=== PATIENT | female | born 1940 | race Caucasian/White ===

== ENCOUNTER 2017-08-23 12:55 | Outpatient (CLI) | payer MEDICARE, BC | END 2017-08-23 12:56 | disposition home or self-care (01) | LOC: BICMAMMO 12:55 | PROVIDERS: ATTEND Surgery | DX: Z12.31 Encounter for screening mammogram for malignant neoplasm of breast (principal); Z85.3 Personal history of malignant neoplasm of breast | CPT/HCPCS: 77063; 77067 ==

== ENCOUNTER 2018-08-24 10:50 | Outpatient (CLI) | payer MEDICARE, BC ==
--- NOTE | 2018-08-24 11:34 | MMO ---
Bilateral MAMMO Bilat Screen [facility]. CLINICAL HISTORY: Patient is 78 years old and is seen for screening. The patient has the following family history of breast cancer: paternal aunt, 40s and daughter. The patient has a history of malignant (generic) in the right breast at age 57. The patient has a history of right Lumpectomy at age 57 - malignant. VIEWS: The views performed were: bilateral craniocaudal with tomosynthesis and bilateral mediolateral oblique with tomosynthesis. FILMS COMPARED: The present examination has been compared to prior imaging studies performed at [facility] on 08/23/2017, and at [facility] on 07/02/2014, 07/07/2015 and 08/18/2016. MAMMOGRAM FINDINGS: The breasts are heterogeneously dense, which could obscure a lesion on mammography. Finding 1: There is a stable post-surgical scar seen in the right breast. Finding 2: There are stable benign appearing calcifications seen in both breasts. There are no suspicious masses, suspicious calcifications, or new areas of architectural distortion. IMPRESSION: THERE IS NO MAMMOGRAPHIC EVIDENCE OF MALIGNANCY. A ROUTINE FOLLOW-UP MAMMOGRAM IN 1 YEAR IS RECOMMENDED. THE RESULTS OF THIS EXAM WERE SENT TO THE PATIENT. ACR BI-RADS Category 2 - Benign finding MAMMOGRAPHY NOTE: 1. A negative mammogram report should not delay a biopsy if a dominant of clinically suspicious mass is present. 2. Approximately 10% to 15% of breast cancers are not detected by mammography. 3. Adenosis and dense breasts may obscure an underlying neoplasm.
== END 2018-08-24 10:51 | disposition home or self-care (01) ==
LOC: BICMAMMO 10:50
PROVIDERS: ATTEND Pain Medicine Pain Medicine
DX: Z12.31 Encounter for screening mammogram for malignant neoplasm of breast (principal); Z80.3 Family history of malignant neoplasm of breast
CPT/HCPCS: 77063; 77067

== ENCOUNTER 2019-04-11 06:23 | Outpatient (CLI) | payer MEDICARE, BC ==
[2019-04-11 10:45] LABS: #Basophils 0.1 thou/uL (0.0-0.2); #Eosinphils 0.2 thou/uL (0.0-0.7); #Lymphocytes 1.6 thou/uL (1.20-3.40); #Monocytes 0.6 thou/uL (0.11-0.59); #Neutrophils 3.8 thou/uL (1.40-6.50); %Eosinophils 3.6 % (0.0-10.0); %Lymphocytes 25.7 % (21.0-51.0); %Monocytes 10.1 % (0.0-10.0); %Neutrophils 59.5 % (42.0-75.0); Hemoglobin 13.8 g/dL (12.0-16.0); Mean Corpuscular HGB CONC 32.9 g/dL (32.0-36.0); Mean Corpuscular Hemoglobin 30.2 pg (27.0-31.0); Mean Corpuscular Volume 91.8 fL (78.0-98.0); Mean Platelet Volume 6.7 fL (7.4-10.4); Platelet Count 238 thou/uL (130-400); RBC Distribution Width 11.7 % (11.5-14.5); Red Blood Cell (RBC) Count 4.56 mill/uL (4.20-5.40); White Blood Cell (WBC) Count 6.3 thou/uL (4.8-10.8)
[2019-04-11 10:53] LABS: Bacteria/HPF None Seen HPF (None Seen); Bilirubin Negative (Negative); Blood, Urine Trace (Negative); Clarity Clear (Clear); Glucose, Urine (Dipstick) Normal (Negative); Leukocyte Negative Leu/uL (Negative); Nitrite Negative (Negative); Protein, Urine (Dipstick) Negative (Neg-Trace); RBC/HPF 0-3 HPF (0-3); Squamous Epithelial None Seen HPF (0-3); Urobilinogen Normal mg/dL (Less than 2); WBC/HPF 0-3 HPF (0-3)
[2019-04-11 10:57] LABS: Anion Gap 13 mmol/L (10-20); BUN (Urea Nitrogen) 21 mg/dL (9.8-20.1); Calc. Creatinine Clearance 0 mL/min (70-130); Calcium 9.6 mg/dL (7.8-10.44); Carbon Dioxide 30 mmol/L (23-31); Chloride 102 mmol/L (98-107); Estimated GFR-MDRD 68; Glucose 107 mg/dL (83-110); Potassium 3.9 mmol/L (3.5-5.1); Sodium 141 mmol/L (136-145)
[2019-04-11 11:08] LABS: Prothrombin Time 12.8 SEC (12.0-14.7)
== END 2019-04-11 06:24 | disposition home or self-care (01) ==
LOC: LABBT 06:23
PROVIDERS: ATTEND Orthopaedic Surgery
DX: Z01.818 Encounter for other preprocedural examination (principal); M17.0 Bilateral primary osteoarthritis of knee
CPT/HCPCS: 80048; 81001; 85025; 85610; 87086; 93005; 93010

== ENCOUNTER 2019-04-22 05:33 | Day surgery (SDC) | payer MEDICARE, BC ==
--- NOTE | 2019-04-18 08:54 | HP ---
HISTORY OF PRESENT ILLNESS: The patient is an 79-year-old female with a long history of progressive degenerative arthritis of both knees, left greater than right. She has had progressive symptoms despite rest, restriction of activities, anti-inflammatory medications, and several cortisone injections. Her pain has become worse over the past several months after working in her garden, but there has been no specific injury. The pain is now interfering with day-to-day activities including walking, getting dressed, and sleeping. PAST MEDICAL HISTORY: The patient has history of diabetes, hypertension, and arthritis. CURRENT MEDICATIONS: Include; 1. Ibuprofen. 2. Vitamin D. 3. Calcium. 4. Dymista. 5. Synthroid. 6. Diovan. 7. Norvasc. 8. Metformin. 9. Lipitor. 10. Tylenol. ALLERGIES: SHE HAS NO KNOWN ALLERGIES. FAMILY HISTORY: Otherwise, unremarkable. SOCIAL HISTORY: Otherwise, unremarkable. REVIEW OF SYSTEMS: Otherwise, unremarkable. PHYSICAL EXAMINATION: GENERAL: Reveals a healthy elderly female. HEENT: Unremarkable. NECK: Supple. CHEST: Clear. HEART: Regular rate and rhythm. ABDOMEN: Soft and nontender. PELVIC, RECTAL, AND BREASTS: Deferred. EXTREMITIES: Pertinent findings are related to her knees. There is puffiness bilaterally, but no definite effusion. There are very slight valgus bilaterally. Range of motion is 5 to 120 degrees on the left, 5 to 125 degrees on the right. There is tenderness with medial and lateral joint lines. There is mild crepitus with motion. There is no instability. Palpable distal pulses. Neurovascular exam is intact. DIAGNOSTIC STUDIES: X-rays of both knees reveal tricompartmental DJD with minimal joint space remaining in progression from previous films. She has received medical and cardiac clearance from Dr. Rosen and Dr. Christie. IMPRESSION: 1. Degenerative arthritis of both knees, left symptomatic more than right. 2. History of hypertension and atherosclerotic cardiovascular disease. 3. History of diabetes. 4. History of thyroid replacement. PLAN: Left total knee replacement. The nature of the surgery, length of recovery, and potential complications such as infection, loss of motion, incomplete relief, delayed wound healing, neurovascular injury, thromboembolic phenomena, possible transfusion, and need for revision have been discussed in detail. Job ID: [id number]
[2019-04-22] MEDS ORDERED: Tranexamic Acid 1,000 MG/10 ML VIAL ONE ×2 (06:01→08:55)
[2019-04-22] MEDS ORDERED: Vancomycin 1.5 GRAM/300 ML BAG 1.5 GM/300 ML BAG ONE (06:01)
[2019-04-22] MEDS ORDERED: Sodium Chloride 0.9% 100 ML ONE (06:01)
[2019-04-22] MEDS ORDERED: Fentanyl 100 MCG/2 ML VIAL ONE ×4 (06:14→09:30)
[2019-04-22] MEDS ORDERED: Midazolam HCl 2 mg/2 ml Vial ONE ×2 (06:14→07:17)
[2019-04-22] MEDS ORDERED: Lidocaine 1% (PF) 30 ML VIAL ONE (06:29)
[2019-04-22] MEDS ORDERED: Bupivacaine 0.25% HCL 30 ML VIAL ONE (06:37)
[2019-04-22] MEDS ORDERED: Lidocaine 1% w/Epinephrine 1:100K 20 ML VIAL ONE (06:37)
[2019-04-22] MEDS ORDERED: Ropivacaine HCl/PF 250 ML in Premix Bag 1 BAG NERVE BLCK SCH (07:32)
[2019-04-22] MEDS ORDERED: traMADol HCl 50 MG TAB PO PRN ×3 (07:32→10:38)
[2019-04-22] MEDS ORDERED: Fentanyl 100 MCG/2 ML VIAL IV PRN (07:32)
[2019-04-22] MEDS ORDERED: Acetaminophen 325 MG TAB PO PRN ×2 (07:32→10:38)
[2019-04-22] MEDS ORDERED: Ondansetron PF 4 MG/2 ML Vial IVP PRN ×2 (07:32→10:38)
[2019-04-22] MEDS ORDERED: HYDROcodone/Acetaminophen 10/325 mg Tablet PO PRN ×3 (07:32→10:38)
[2019-04-22] MEDS ORDERED: Zolpidem Tartrate 5 MG TAB PO PRN ×2 (07:32→10:38)
[2019-04-22] MEDS ORDERED: Promethazine HCl 25 MG/ML VIAL IM PRN (07:32)
[2019-04-22] MEDS ORDERED: Tranexamic Acid 1,000 MG in Sodium Chloride 0.9% 100 ML IVPB SCH ×2 (09:00→10:38)
[2019-04-22] MEDS ORDERED: Meperidine HCl/PF 25 MG/ML VIAL ONE (09:40)
--- NOTE | 2019-04-22 10:10 | OP ---
DATE OF PROCEDURE: 04/22/2019 REAL ESTATE EXECUTIVE ASSISTANT: Marcin Metcalf PA-C ANESTHESIA: General plus adductor canal and sciatic nerve blocks. PREOPERATIVE DIAGNOSIS: Degenerative arthritis, left knee. POSTOPERATIVE DIAGNOSIS: Degenerative arthritis, left knee. PROCEDURE PERFORMED: Left total knee replacement with computer-assisted navigation with cemented Carlos Triathlon components (#5 femoral component, #4 primary tibial baseplate with 9 mm CS plastic insert, and all-plastic A32 patellar component). DESCRIPTION OF PROCEDURE: After satisfactory anesthesia was induced in supine position, sequential compression device was placed on the nonoperative leg throughout the procedure. The left leg was then prepped and draped in the routine sterile fashion. The limb was elevated and exsanguinated with an Esmarch bandage and the tourniquet deflated to 250 mmHg. A gently curved medial parapatellar incision was made, carried down to the subcutaneous tissues and bleeding points were controlled with Bovie cautery. Medial parapatellar arthrotomy was performed. Patella was dislocated laterally and portions of the fat pad were excised for exposure. There was marked tricompartmental degenerative arthritis of the knee with large areas of exposed bone. Meniscal remnants and osteophytes were removed. Using the [employer] pinless navigation system and the appropriate guides, the distal femoral and proximal tibial articular surfaces were excised with an oscillating saw to accept the trial components. It was felt #5 femoral component, #4 tibial baseplate with 9 mm CS plastic insert gave appropriate size, fit, stability, and correction of the preoperative deformity. The patellar articular surface was excised to accept all-plastic A32 patellar component. There was good range of motion and good patellar tracking. The trial components were removed. The knee was copiously irrigated with pulsatile lavage. The bony surfaces were thoroughly cleaned and dried. The permanent components were then cemented in a single stage using one pack of cement premixed with 1 g of tobramycin powder. Excess cement was removed. There was again good fit and stability of the components. The knee was copiously irrigated with pulsatile lavage. The medial retinaculum and quadriceps mechanism was closed with interrupted #2 Vicryl and a running #2 Quill. The skin and subcutaneous tissues were injected with a mixture of 30 mL of 0.25% Marcaine and a 20 mL of 1% lidocaine with epinephrine. The subcutaneous tissues were closed with a running 0 Quill suture and the skin closed with running subcuticular 3-0 Monoderm and SurgiSeal skin adhesive. A sterile bulky compressive dressing was applied. The tourniquet deflated after 66 minutes. The foot promptly pinked up. Sequential compression devices were placed on the upper leg and she was awakened and taken to the recovery room in stable condition. There were no apparent intraoperative complications. ESTIMATED BLOOD LOSS: Less than 100 mL. Job ID: [id number]
[2019-04-22] MEDS ORDERED: Ropivacaine 0.2% HCl/PF (40 MG/20 ML VIAL) ONE (10:19)
[2019-04-22] MEDS ORDERED: Glycopyrrolate 0.2 MG/ML 5 ML SYRINGE ONE (10:19)
[2019-04-22] MEDS ORDERED: PROPOFOL 200 MG/20 ML VIAL ONE (10:19)
[2019-04-22] MEDS ORDERED: Ropivacaine 0.5% HCl/PF (150 MG/30 ML VIAL) ONE (10:19)
[2019-04-22] MEDS ORDERED: Metoclopramide HCl 10 MG/2 ML VIAL ONE (10:19)
[2019-04-22] MEDS ORDERED: Lidocaine 1% PF 5 ML VIAL ONE (10:19)
[2019-04-22] MEDS ORDERED: Ondansetron PF 4 MG/2 ML Vial ONE (10:19)
--- NOTE | 2019-04-22 10:23 | RAD ---
LEFT KNEE 2 VIEWS: INDICATION: Postoperative left knee. COMPARISON: None. FINDINGS: There is a left total knee prosthesis that projects in the expected position. There is scattered int raarticular and periarticular soft tissue gas consistent with the patient's postoperative state. No acute osseous abnormality is evident. IMPRESSION: Postoperative left knee without overt evidence of radiographic abnormality. POS: CET
[2019-04-22] MEDS ORDERED: Fentanyl 100 MCG/2 ML VIAL SLOW IVP PRN ×2 (10:38)
[2019-04-22] MEDS ORDERED: diphenhydrAMINE 25 MG CAP PO PRN (10:38)
[2019-04-22] MEDS ORDERED: Promethazine HCl 25 MG/ML VIAL SLOW IVP PRN (10:38)
[2019-04-22] MEDS ORDERED: Ketotifen Fumarate 0.025% Ophth Soln 5 ml Bottle EA EYE PRN (10:38)
[2019-04-22 10:56] VITALS: BMI 33.3
[2019-04-22] MEDS ORDERED: Fluticasone Propionate Nasal Spray 16 gm Bottle NASAL PRN (11:15)
[2019-04-22] MEDS: Ketorolac Tromethamine 30 MG/ML VIAL IVP SCH ×3 (11:19→23:09)
[2019-04-22] MEDS: Sodium Chloride 0.9% 1,000 ML IV SCH ×2 (11:21→20:55)
[2019-04-22] MEDS ORDERED: Ketorolac Tromethamine 30 MG/ML VIAL IVP SCH (12:00)
[2019-04-22] MEDS ORDERED: CEFAZOLIN 2 GM in Premix Bag 1 BAG IVPB SCH (14:00)
[2019-04-22] MEDS ORDERED: Dextrose 5% in Water 1,000 ML IV PRN (14:27)
[2019-04-22] MEDS ORDERED: HumaLOG 300 UNITS/3 ML VIAL SC PRN (14:27)
[2019-04-22] MEDS ORDERED: Dextrose 50% Abboject 50 ML SYRINGE SLOW IVP PRN (14:27)
[2019-04-22] MEDS: HYDROcodone/Acetaminophen 10/325 mg Tablet PO PRN (14:44)
--- NOTE | 2019-04-22 14:53 | CON ---
DATE OF CONSULTATION: PRIMARY CARE PHYSICIAN: Pete Rosen. PRIMARY TEAM: Orthopedics, Dr. Wong. REASON FOR CONSULTATION: Medical management. HISTORY OF PRESENT ILLNESS: This is an 79-year-old white female, who presented for left total knee arthroplasty due to severe arthritis. She had surgery done early this morning and is comfortable in the bed currently without any complaints. PAST MEDICAL HISTORY: 1. Diabetes mellitus type 2, on oral hypoglycemics. 2. Hypertension. 3. Hyperlipidemia. 4. Hypothyroidism. 5. Arthritis. PAST SURGICAL HISTORY: 1. Lumpectomy for breast cancer. 2. Parathyroidectomy for hyperparathyroidism of one of her glands. 3. Umbilical hernia repair. 4. Left wrist surgery for fracture with plate placement. SOCIAL HISTORY: No tobacco, alcohol, or illicit drug use. The patient is a . She is a retired nurse. FAMILY HISTORY: No significant family medical history. ALLERGIES: NO KNOWN DRUG ALLERGIES. CURRENT MEDICATIONS: 1. Acetaminophen as needed for pain. 2. Ibuprofen as needed for pain. 3. Amlodipine 2.5 mg daily. 4. Atorvastatin 20 mg daily. 5. Calcium citrate 500 mg twice a day. 6. Vitamin D3 4000 units daily. 7. Flonase allergy spray, two sprays in each nostril daily as needed. 8. Ketotifen fumarate one drop in each eye twice a day. 9. Levothyroxine 150 mcg daily. 10. Metformin 1000 mg daily. 11. Diovan 160/12.5 mg one tablet daily. REVIEW OF SYSTEMS: CONSTITUTIONAL: No fevers. No chills. EYES: No double vision or blurred vision. ENT: No congestion, drainage, or sore throat. CARDIOVASCULAR: No chest pain. No palpitations or racing heart. PULMONARY: No coughing, wheezing, or shortness of breath. GASTROINTESTINAL: No abdominal pain. No nausea or vomiting. No diarrhea or constipation. GENITOURINARY: No dysuria or hematuria. MUSCULOSKELETAL: See HPI. No current pain after surgery. SKIN: No rashes or other lesions she has noted. NEUROLOGIC: No numbness, tingling, or focal weakness. PHYSICAL EXAMINATION: VITAL SIGNS: Blood pressure 129/74, pulse 87, respirations 18, O2 saturation 95% on 2 L nasal cannula, temperature 97.4. GENERAL: This is a well-developed obese white female, in no acute distress. HEENT: Pupils equal, round, and reactive to light. Oropharynx is clear without lesions, erythema, or exudate. NECK: Supple. No lymphadenopathy. No thyroid nodules or enlargement. No JVD. HEART: Regular rate and rhythm. She does have a musical holosystolic murmur. No rubs or gallops. The patient states this murmur has been present for the last 10 years and she had a normal echocardiogram. LUNGS: Clear to auscultation bilaterally. No wheezes, crackles, or rhonchi. ABDOMEN: Soft, obese, nontender to palpation. Normoactive bowel sounds. No hepatosplenomegaly or other masses. EXTREMITIES: No clubbing, cyanosis, or edema. She does have the postoperative dressing on the left knee with ice on it as well and has SCDs placed bilaterally. SKIN: No rashes or other lesions noted. NEUROLOGIC: She has intact strength and sensation in all extremities. No facial droop. PSYCHIATRIC: Alert and oriented x3. Normal mood and affect. LABORATORY DATA: CBC within normal limits. Coagulation profile normal. Basic metabolic panel within normal limits. Urinalysis negative for infection. ASSESSMENT: 1. Severe arthritis of the left knee, status post total knee arthroplasty. 2. Diabetes mellitus type 2. We will resume patient's metformin and check fingerstick blood sugars q.a.c. and at bedtime. 3. Hypertension, resume patient's home antihypertensives. 4. Hyperlipidemia, resume statin. 5. Hypothyroidism, resume levothyroxine. 6. Gastrointestinal prophylaxis. The patient is on Pepcid twice a day. 7. Deep venous thrombosis prophylaxis. The patient is already on SCDs. 8. Code status. The patient is a full code. Her closest kin and medical decision maker will be her son, Jesse Haines. Job ID: [id number]
[2019-04-22] MEDS: CEFAZOLIN 2 GM in Premix Bag 1 BAG IVPB SCH ×2 (16:58→23:10)
[2019-04-22] MEDS: metFORMIN 500 MG TAB PO SCH (16:59)
[2019-04-22] MEDS: HumaLOG 300 UNITS/3 ML VIAL SC PRN (16:59)
[2019-04-22] MEDS ORDERED: Vancomycin HCl 1.5 GM in Sodium Chloride 0.9% 250 ML 300 ML IVPB SCH (18:00)
[2019-04-22] MEDS: Atorvastatin Calcium 20 MG TAB PO SCH (20:56)
[2019-04-22] MEDS: Senokot S 8.6-50 MG TAB PO SCH (20:56)
[2019-04-22] MEDS: Aspirin 81 mg Enteric Coated Tablet PO SCH (20:56)
[2019-04-22] MEDS: Famotidine 20 MG TAB PO SCH (20:56)
[2019-04-22] MEDS: Calcium Citrate 950 MG TAB PO SCH (20:57)
[2019-04-23] MEDS: Levothyroxine 150 MCG TAB PO SCH (05:07)
[2019-04-23] MEDS: Ketorolac Tromethamine 30 MG/ML VIAL IVP SCH ×4 (05:08→23:42)
[2019-04-23] MEDS: Sodium Chloride 0.9% 1,000 ML IV SCH ×2 (05:31→16:33)
[2019-04-23] MEDS: HYDROcodone/Acetaminophen 10/325 mg Tablet PO PRN ×3 (06:05→16:50)
[2019-04-23 06:06] LABS: Hemoglobin 11.7 g/dL (12.0-16.0); Mean Corpuscular HGB CONC 32.2 g/dL (32.0-36.0); Mean Corpuscular Hemoglobin 29.9 pg (27.0-31.0); Mean Corpuscular Volume 92.8 fL (78.0-98.0); Mean Platelet Volume 6.7 fL (7.4-10.4); Platelet Count 183 thou/uL (130-400); RBC Distribution Width 11.7 % (11.5-14.5); Red Blood Cell (RBC) Count 3.93 mill/uL (4.20-5.40); White Blood Cell (WBC) Count 9.1 thou/uL (4.8-10.8)
[2019-04-23] MEDS: Famotidine 20 MG TAB PO SCH ×2 (08:18→20:52)
[2019-04-23] MEDS: Aspirin 81 mg Enteric Coated Tablet PO SCH ×2 (08:18→20:51)
[2019-04-23] MEDS: Multivitamin W/ Minerals 1 TAB PO SCH (08:19)
[2019-04-23] MEDS: Senokot S 8.6-50 MG TAB PO SCH ×2 (08:20→20:51)
[2019-04-23] MEDS: Hydrochlorothiazide 25 MG TAB PO SCH (08:20)
[2019-04-23] MEDS: Calcium Citrate 950 MG TAB PO SCH ×2 (08:20→20:50)
[2019-04-23] MEDS ORDERED: Amlodipine 5 MG TAB PO SCH (09:00)
[2019-04-23] MEDS ORDERED: Valsartan 80 MG TAB PO SCH (09:00)
--- NOTE | 2019-04-23 15:36 | PDOC.HOSPP ---
- Subjective Subjective: doing good, BP on the low side. low grade temp. - Objective Vital Signs & Weight: Vital Signs (12 hours) Temp Pulse Resp BP Pulse Ox 04/23/19 10:05 94 L 04/23/19 08:31 94 L 04/23/19 08:20 69 04/23/19 07:57 94 L 04/23/19 07:55 99.5 F 69 14 96/60 80 L Weight Admit Weight 200 lb Weight 200 lb I&O: 04/22/19 04/23/19 04/24/19 06:59 06:59 06:59 Intake Total 1710 480 Output Total 1025 Balance 685 480 Result Diagrams: 04/23/19 05:12 Additional Labs: Accuchecks 04/23/19 04/23/19 04/22/19 11:25 06:12 20:06 POC Glucose 125 H 128 H 116 H 04/22/19 15:53 POC Glucose 154 H Hospitalist ROS - Medication Medications: Active Medications Generic Name Dose Route Start Last Admin Trade Name Freq PRN Reason Stop Dose Admin Hydrocodone Bitart/Acetaminophen 1 tab 04/22/19 10:38 04/22/19 22:24 Bernie 10/325 PO 1 tab Q4H PRN Administration Moderate Pain (4-6) Hydrocodone Bitart/Acetaminophen 2 tab 04/22/19 10:38 04/23/19 10:00 Bernie 10/325 PO 2 tab Q4H PRN Administration Severe Pain (7-10) Aspirin 81 mg 04/22/19 21:00 04/23/19 08:18 Ecotrin PO 81 mg BID RAUL Administration Atorvastatin Calcium 20 mg 04/22/19 21:00 04/22/19 20:56 Lipitor PO 20 mg HS RAUL Administration Calcium Citrate 475 mg 04/22/19 21:00 04/23/19 08:20 Calcium Citrate PO 475 mg BID RAUL Administration Famotidine 20 mg 04/22/19 21:00 04/23/19 08:18 Pepcid PO 20 mg BID RAUL Administration Fentanyl 100 mcg 04/22/19 10:38 04/22/19 11:20 Sublimaze SLOW IVP 50 mcg Q1H PRN Administration Severe Pain (7-10) Hydrochlorothiazide 12.5 mg 04/23/19 09:00 04/23/19 08:20 Hydrochlorothiazide PO Not Given DAILY RAUL Ropivacaine 250 ml/ Device 250 mls @ 0 mls/hr 04/22/19 07:32 04/23/19 09:49 NERVE BLCK 04/24/19 07:33 250 mls INF RALU Administration As Directed Sodium Chloride 1,000 mls @ 100 mls/hr 04/22/19 10:38 04/23/19 05:31 Normal Saline 0.9% IV Not Given .Q10H RAUL Insulin Human Lispro 0 units 04/22/19 14:27 04/22/19 16:59 Humalog SC 2 unit .MILD SLIDING SCALE PRN Administration Mild Correctional Scale Iron/Minerals/Multivitamins 1 tab 04/23/19 09:00 04/23/19 08:19 Theragran M PO 1 tab DAILY RAUL Administration Ketorolac Tromethamine 15 mg 04/22/19 12:00 04/23/19 12:34 Toradol IVP 04/24/19 12:01 15 mg Q6HR RAUL Administration Levothyroxine Sodium 150 mcg 04/23/19 06:00 04/23/19 05:07 Synthroid PO 150 mcg 0600 RAUL Administration Metformin HCl 1,000 mg 04/22/19 17:00 04/22/19 16:59 Glucophage PO 1,000 mg QPM-WM RAUL Administration Senna/Docusate Sodium 2 tab 04/22/19 21:00 04/23/19 08:20 Senokot S PO 2 tab BID RAUL Administration Valsartan 160 mg 04/23/19 09:00 04/23/19 08:21 Diovan PO Not Given DAILY RAUL - Exam General Appearance: NAD, awake alert Eye: PERRL ENT: normocephalic atraumatic Neck: supple, symmetric Heart: RRR Respiratory: CTAB Gastrointestinal: soft, normal bowel sounds Extremities - other findings: left TKA Neurological: no focal deficits Hosp A/P - Plan old records reviewed/req s/p L - TKA -on analgesic, PT, early ambulation - on ASA HTN -BP on the low end--if sBP<85, 250ml NS bolus, PRN -change meds with holds - HCTZ, valsartan changed to bid, for easy titration Hypothyroidism -on suppl, fw on tsh DVT ppx - ASA?
[2019-04-23] MEDS ORDERED: Sodium Chloride 0.9% 250 ML IV SCH (15:45)
[2019-04-23] MEDS: metFORMIN 500 MG TAB PO SCH (16:50)
[2019-04-23] MEDS: HumaLOG 300 UNITS/3 ML VIAL SC PRN (16:51)
[2019-04-23] MEDS: Valsartan 80 MG TAB PO SCH (20:50)
[2019-04-23] MEDS: Atorvastatin Calcium 20 MG TAB PO SCH (20:51)
[2019-04-24] MEDS: Sodium Chloride 0.9% 1,000 ML IV SCH ×2 (00:46→13:15)
[2019-04-24] MEDS: Ketorolac Tromethamine 30 MG/ML VIAL IVP SCH ×2 (05:03→12:27)
[2019-04-24] MEDS: Levothyroxine 150 MCG TAB PO SCH (05:03)
[2019-04-24 05:45] LABS: #Eosinphils 0.4 thou/uL (0.0-0.7); #Lymphocytes 1.2 thou/uL (1.20-3.40); #Monocytes 0.7 thou/uL (0.11-0.59); #Neutrophils 6.2 thou/uL (1.40-6.50); %Basophils 0.4 % (0.0-1.0); %Lymphocytes 14.1 % (21.0-51.0); %Monocytes 8.5 % (0.0-10.0); Hemoglobin 10.4 g/dL (12.0-16.0); Mean Corpuscular HGB CONC 33.7 g/dL (32.0-36.0); Mean Platelet Volume 6.9 fL (7.4-10.4); Platelet Count 159 thou/uL (130-400); RBC Distribution Width 11.7 % (11.5-14.5); Red Blood Cell (RBC) Count 3.35 mill/uL (4.20-5.40); White Blood Cell (WBC) Count 8.6 thou/uL (4.8-10.8)
[2019-04-24 05:58] LABS: Anion Gap 10 mmol/L (10-20); BUN (Urea Nitrogen) 20 mg/dL (9.8-20.1); Calc. Creatinine Clearance 73 mL/min (70-130); Calcium 8.3 mg/dL (7.8-10.44); Carbon Dioxide 27 mmol/L (23-31); Chloride 104 mmol/L (98-107); Estimated GFR-MDRD 63; Glucose 146 mg/dL (83-110); Sodium 137 mmol/L (136-145)
[2019-04-24] MEDS: Aspirin 81 mg Enteric Coated Tablet PO SCH (08:25)
[2019-04-24] MEDS: Famotidine 20 MG TAB PO SCH (08:25)
[2019-04-24] MEDS: Multivitamin W/ Minerals 1 TAB PO SCH (08:26)
[2019-04-24] MEDS: Valsartan 80 MG TAB PO SCH (08:26)
[2019-04-24] MEDS: Calcium Citrate 950 MG TAB PO SCH (08:26)
[2019-04-24] MEDS: Hydrochlorothiazide 25 MG TAB PO SCH (08:26)
[2019-04-24] MEDS: Senokot S 8.6-50 MG TAB PO SCH (08:26)
[2019-04-24] MEDS: HYDROcodone/Acetaminophen 10/325 mg Tablet PO PRN (08:38)
[2019-04-24 12:12] VITALS: BP 117/72; TEMP 97.9
--- NOTE | 2019-04-24 13:39 | PDOC.HOSPP ---
- Subjective Subjective: tolerating PT and no acute events/complaints - Objective Vital Signs & Weight: Vital Signs (12 hours) Temp Pulse Resp BP Pulse Ox 04/24/19 11:25 97.9 F 88 16 117/72 88 L 04/24/19 07:24 97.7 F 83 16 125/72 96 04/24/19 07:20 96 04/24/19 03:50 99.0 F 85 16 106/66 97 Weight Admit Weight 200 lb Weight 200 lb I&O: 04/23/19 04/24/19 04/25/19 06:59 06:59 06:59 Intake Total 1710 970 480 Output Total 1025 Balance 685 970 480 Result Diagrams: 04/24/19 05:04 04/24/19 05:04 Additional Labs: Accuchecks 04/24/19 04/24/19 04/23/19 11:09 06:09 20:39 POC Glucose 144 H 149 H 137 H 04/23/19 15:27 POC Glucose 156 H Hospitalist ROS - Medication Medications: Active Medications Generic Name Dose Route Start Last Admin Trade Name Freq PRN Reason Stop Dose Admin Hydrocodone Bitart/Acetaminophen 1 tab 04/22/19 10:38 04/22/19 22:24 Max 10/325 PO 1 tab Q4H PRN Administration Moderate Pain (4-6) Hydrocodone Bitart/Acetaminophen 2 tab 04/22/19 10:38 04/24/19 08:38 Max 10/325 PO 2 tab Q4H PRN Administration Severe Pain (7-10) Aspirin 81 mg 04/22/19 21:00 04/24/19 08:25 Ecotrin PO 81 mg BID RALU Administration Atorvastatin Calcium 20 mg 04/22/19 21:00 04/23/19 20:51 Lipitor PO 20 mg HS RAUL Administration Calcium Citrate 475 mg 04/22/19 21:00 04/24/19 08:26 Calcium Citrate PO 475 mg BID RAUL Administration Cholecalciferol 4,000 units 04/23/19 21:00 04/23/19 20:51 Vitamin D3 PO 4,000 units QPM RAUL Administration Famotidine 20 mg 04/22/19 21:00 04/24/19 08:25 Pepcid PO 20 mg BID RAUL Administration Fentanyl 100 mcg 04/22/19 10:38 04/22/19 11:20 Sublimaze SLOW IVP 50 mcg Q1H PRN Administration Severe Pain (7-10) Hydrochlorothiazide 12.5 mg 04/23/19 09:00 04/24/19 08:26 Hydrochlorothiazide PO 12.5 mg DAILY RAUL Administration Sodium Chloride 1,000 mls @ 100 mls/hr 04/22/19 10:38 04/24/19 13:15 Normal Saline 0.9% IV Not Given .Q10H RAUL Insulin Human Lispro 0 units 04/22/19 14:27 04/23/19 16:51 Humalog SC 2 unit .MILD SLIDING SCALE PRN Administration Mild Correctional Scale Iron/Minerals/Multivitamins 1 tab 04/23/19 09:00 04/24/19 08:26 Theragran M PO 1 tab DAILY RAUL Administration Levothyroxine Sodium 150 mcg 04/23/19 06:00 04/24/19 05:03 Synthroid PO 150 mcg 0600 RAUL Administration Metformin HCl 1,000 mg 04/22/19 17:00 04/23/19 16:50 Glucophage PO 1,000 mg QPM-WM RAUL Administration Senna/Docusate Sodium 2 tab 04/22/19 21:00 04/24/19 08:26 Senokot S PO 2 tab BID RAUL Administration Tramadol HCl 100 mg 04/22/19 10:38 04/23/19 20:52 Ultram PO 100 mg Q6H PRN Administration Moderate Pain (4-6) Valsartan 80 mg 04/23/19 21:00 04/24/19 08:26 Diovan PO 80 mg BID RAUL Administration - Exam General Appearance: NAD, awake alert Eye: PERRL ENT: normocephalic atraumatic Neck: supple, symmetric Heart: RRR, no murmur Respiratory: CTAB Gastrointestinal: non-tender, normal bowel sounds Extremities - other findings: left knee w.. sux scar, mildly erythematic. Neurological: no focal deficits Hosp A/P - Plan s/p L - TKA -on analgesic, PT, early ambulation - on ASA HTN -BP on the low end--if sBP<85, 250ml NS bolus, PRN -change meds with holds - HCTZ, valsartan changed to bid, for easy titration DM2 - on metformin -BG acceptable Hypothyroidism -on suppl, fw on tsh--------->nl DVT ppx - ASA? medically stable for rehab transfer, when able.
== END 2019-04-24 14:22 | disposition home or self-care (01) ==
LOC: SDC 05:33 → SJJU 10:22 → SDC 04-24 14:22
PROVIDERS: ATTEND Orthopaedic Surgery
PROC: 0SRD0JZ Replacement of Left Knee Joint with Synthetic Substitute, Open Approach (ICD-10-PCS; principal; 2019-04-22)
PROC: 3E0T3BZ Introduction of Anesthetic Agent into Peripheral Nerves and Plexi, Percutaneous Approach (ICD-10-PCS; 2019-04-22)
DX: M17.0 Bilateral primary osteoarthritis of knee (principal); E03.9 Hypothyroidism, unspecified; E11.9 Type 2 diabetes mellitus without complications; E78.5 Hyperlipidemia, unspecified; I10 Essential (primary) hypertension; G89.18 Other acute postprocedural pain; Z79.84 Long term (current) use of oral hypoglycemic drugs; Z79.899 Other long term (current) drug therapy
CPT/HCPCS: 27447; 64448; 73560; 80048; 82962; 84443; 85025; 85027; 97116 ×3; 97139 ×4; 97150 ×2; 97530 ×2; 98961; C1713; C1776; 36415; 36416; J0690; J1885; J2001; J2175; J2250; J2405; J2704; J2765; J2795; J3010; J3490; S0020

== ENCOUNTER 2021-09-15 12:48 | Outpatient (CLI) | payer MEDICARE, BC | END 2021-09-15 12:49 | disposition home or self-care (01) | LOC: LABBT 12:48 | PROVIDERS: ATTEND Orthopaedic Surgery | DX: Z01.818 Encounter for other preprocedural examination (principal); M17.11 Unilateral primary osteoarthritis, right knee | CPT/HCPCS: 71046; 93005; 93010 ==

== ENCOUNTER 2021-09-20 05:24 | Inpatient (IN) | payer MEDICARE, BC ==
[2021-09-15 14:10] LABS: Bilirubin Neg (Negative); Blood, Urine 25 (Negative); Glucose, Urine (Dipstick) Normal (Negative); Ketone, Urine Negative (Negative); Leukocyte Negative (Negative); Nitrite Negative (Negative); Protein, Urine (Dipstick) Negative (Neg-Trace); Specific Gravity, Urine 1.005 (1.002-1.036); Urobilinogen Normal mg/dL (Less than 2)
[2021-09-15 14:11] LABS: Clarity Clear (Clear)
[2021-09-15 14:12] LABS: #Basophils 0.1 10x3/uL (0.0-0.2); #Eosinphils 0.3 10x3/uL (0.0-0.5); #Monocytes 0.8 10x3/uL (0.0-1.1); #Neutrophils 4.3 10x3/uL (1.5-8.4); %Basophils 0.7 % (0.0-2.0); %Eosinophils 4.3 % (0.0-6.0); %Monocytes 10.3 % (0.0-10.0); %Neutrophils 57.6 % (40.0-75.0); Hemoglobin 13.7 g/dL (12.0-15.5); Mean Corpuscular HGB CONC 32.5 g/dL (32.0-36.0); Mean Corpuscular Hemoglobin 29.3 pg (27.0-33.0); Mean Corpuscular Volume 90.1 fl (81.6-98.3); Platelet Count 259 10x3/uL (150-450); RBC Distribution Width 12.5 % (11.5-14.5); Red Blood Cell (RBC) Count 4.67 10x6/uL (3.90-5.03); White Blood Cell (WBC) Count 7.5 10x3/uL (3.5-10.5)
[2021-09-15 14:18] LABS: INR-International Normal Ratio 0.9; Prothrombin Time 9.8 sec (9.5-12.1)
[2021-09-15 14:20] LABS: Anion Gap 14 mmol/L (10-20); BUN (Urea Nitrogen) 22 mg/dL (9.8-20.1); Calc. Creatinine Clearance 0 mL/min (70-130); Calcium 9.8 mg/dL (7.8-10.44); Carbon Dioxide 32 mmol/L (23-31); Chloride 98 mmol/L (98-107); Glucose 109 mg/dL (83-110); Sodium 140 mmol/L (136-145)
[2021-09-16 11:27] VITALS: BMI 32.4
[2021-09-20] MEDS ORDERED: Tranexamic Acid 1,000 MG/10 ML VIAL ONE ×2 (06:12→09:33)
[2021-09-20] MEDS ORDERED: Vancomycin HCl 500 MG VIAL ONE (06:12)
[2021-09-20] MEDS ORDERED: Vancomycin 1 GM/200 ML BAG ONE (06:13)
[2021-09-20] MEDS ORDERED: fentaNYL Citrate/PF 100 MCG/2 ML SYRINGE ONE (06:21)
[2021-09-20] MEDS ORDERED: Bupivacaine PF 0.5% 30 ML VIAL ONE (06:33)
[2021-09-20] MEDS ORDERED: Sodium Chloride 0.9% 100 ML ONE ×2 (06:36→07:00)
[2021-09-20] MEDS ORDERED: Lidocaine 1% (PF) 30 ML VIAL ONE (06:42)
[2021-09-20] MEDS ORDERED: CEFAZOLIN 2 GM VIAL ONE (07:00)
[2021-09-20] MEDS ORDERED: ePHEDrine 50 MG/ML VIAL ONE (07:17)
[2021-09-20] MEDS ORDERED: Lidocaine 1% PF 5 ML VIAL ONE (07:17)
[2021-09-20] MEDS ORDERED: Ropivacaine 0.5% HCl/PF (150 MG/30 ML VIAL) ONE (07:17)
[2021-09-20] MEDS ORDERED: PROPOFOL 200 MG/20 ML VIAL ONE (07:17)
[2021-09-20] MEDS ORDERED: PHENYLEPHRINE-NS 100 MCG/ML 10 ML SYRINGE ONE (07:17)
[2021-09-20] MEDS ORDERED: Dexamethasone 20 MG/5 ML VIAL ONE (07:17)
[2021-09-20] MEDS ORDERED: Ondansetron PF 4 MG/2 ML Vial ONE (07:17)
[2021-09-20] MEDS ORDERED: Fentanyl 100 MCG/2 ML VIAL SLOW IVP PRN ×2 (07:20→07:59)
[2021-09-20] MEDS ORDERED: diphenhydrAMINE 25 MG CAP PO PRN (07:20)
[2021-09-20] MEDS ORDERED: HYDROcodone/Acetaminophen 10/325 mg Tablet PO PRN ×3 (07:20→08:00)
[2021-09-20] MEDS ORDERED: Promethazine HCl 25 MG/ML VIAL IM PRN ×2 (07:20→08:00)
[2021-09-20] MEDS ORDERED: traMADol HCl 50 MG TAB PO PRN ×3 (07:20→08:00)
[2021-09-20] MEDS ORDERED: Acetaminophen 325 MG TAB PO PRN (07:20)
[2021-09-20] MEDS ORDERED: Zolpidem Tartrate 5 MG TAB PO PRN ×2 (07:20→08:00)
[2021-09-20] MEDS ORDERED: Ondansetron PF 4 MG/2 ML Vial IVP PRN ×2 (07:20→08:00)
[2021-09-20] MEDS ORDERED: Ketotifen Fumarate 0.025% Ophth Soln 5 ml Bottle EA EYE PRN (07:22)
[2021-09-20] MEDS ORDERED: Tranexamic Acid 1,000 MG in Sodium Chloride 0.9% 100 ML IVPB SCH (07:30)
[2021-09-20] MEDS ORDERED: Ropivacaine 0.2% 550 ML 550 ML NERVE BLCK SCH (08:00)
[2021-09-20] MEDS ORDERED: Fentanyl 100 MCG/2 ML VIAL ONE (09:20)
[2021-09-20] MEDS: Atorvastatin Calcium 20 MG TAB PO SCH (11:07)
[2021-09-20] MEDS: Aspirin 81 mg Enteric Coated Tablet PO SCH ×2 (11:07→20:33)
[2021-09-20] MEDS: Amlodipine 5 MG TAB PO SCH (11:07)
[2021-09-20] MEDS: Sodium Chloride 0.9% 1,000 ML IV SCH ×2 (11:07→17:25)
[2021-09-20] MEDS: Valsartan 80 MG TAB PO SCH (11:08)
[2021-09-20] MEDS: Hydrochlorothiazide 25 MG TAB PO SCH (11:08)
[2021-09-20] MEDS: HYDROcodone/Acetaminophen 10/325 mg Tablet PO PRN ×2 (12:02→20:30)
[2021-09-20] MEDS: Ketorolac Tromethamine 30 MG/ML VIAL IVP SCH ×3 (12:02→23:40)
[2021-09-20] MEDS ORDERED: Ketorolac Tromethamine 30 MG/ML VIAL IVP SCH (14:00)
[2021-09-20] MEDS: CEFAZOLIN 2 GM in Sodium Chloride 0.9% 100 ML IVPB SCH ×2 (14:35→23:40)
[2021-09-20] MEDS ORDERED: Docusate 100 MG CAP PO PRN (16:40)
[2021-09-20] MEDS ORDERED: Polyethylene Glycol 3350 17 GM Packet PO PRN (16:40)
[2021-09-20] MEDS ORDERED: metFORMIN 500 MG TAB PO SCH (17:00)
[2021-09-20] MEDS ORDERED: Vancomycin 1.5 GRAM/300 ML BAG 1.5 GM in Premix Bag 1 BAG IVPB SCH (20:00)
[2021-09-20] MEDS ORDERED: Cholecalciferol 1,000 UNITS (25 MCG) TAB PO SCH (21:00)
[2021-09-21] MEDS: Sodium Chloride 0.9% 1,000 ML IV SCH ×2 (04:45→14:21)
[2021-09-21 05:46] LABS: Mean Corpuscular HGB CONC 32.6 g/dL (32.0-36.0); Mean Corpuscular Hemoglobin 30.3 pg (27.0-31.0); Mean Corpuscular Volume 92.9 fL (78.0-98.0); Mean Platelet Volume 6.7 fL (7.4-10.4); Platelet Count 184 thou/uL (130-400); RBC Distribution Width 11.6 % (11.5-14.5); Red Blood Cell (RBC) Count 3.31 mill/uL (4.20-5.40); White Blood Cell (WBC) Count 12.1 thou/uL (4.8-10.8)
[2021-09-21] MEDS ORDERED: Levothyroxine Sodium 125 MCG TAB PO SCH (06:00)
[2021-09-21] MEDS: Ketorolac Tromethamine 30 MG/ML VIAL IVP SCH ×2 (06:00→11:32)
[2021-09-21] MEDS ORDERED: Ferrous Gluconate 324 MG TAB PO SCH (08:00)
[2021-09-21] MEDS: Aspirin 81 mg Enteric Coated Tablet PO SCH (08:25)
[2021-09-21] MEDS: Amlodipine 5 MG TAB PO SCH (08:28)
[2021-09-21] MEDS: Atorvastatin Calcium 20 MG TAB PO SCH (08:28)
[2021-09-21] MEDS: Hydrochlorothiazide 25 MG TAB PO SCH (08:28)
[2021-09-21] MEDS: Valsartan 80 MG TAB PO SCH (08:28)
[2021-09-21] MEDS ORDERED: Senokot S 8.6-50 MG TAB PO SCH (09:00)
[2021-09-21] MEDS ORDERED: Multivitamin W/ Minerals 1 TAB PO SCH (09:00)
[2021-09-21 11:56] VITALS: BP 102/58; TEMP 98.3
[2021-09-21] MEDS: HYDROcodone/Acetaminophen 10/325 mg Tablet PO PRN (14:43)
== END 2021-09-21 14:55 | disposition home or self-care (01) | DRG 470 ==
LOC: SDC 05:24 → SURG A 06:00 → SDC 07:00 → SURG A 07:20
PROVIDERS: ADMIT Orthopaedic Surgery; ATTEND Family Medicine
PROC: 0SRC0J9 Replacement of Right Knee Joint with Synthetic Substitute, Cemented, Open Approach (ICD-10-PCS; principal; 2021-09-20)
DX: M17.11 Unilateral primary osteoarthritis, right knee (principal); Z20.822 Contact with and (suspected) exposure to COVID-19; E11.9 Type 2 diabetes mellitus without complications; I10 Essential (primary) hypertension; E78.5 Hyperlipidemia, unspecified; Z96.652 Presence of left artificial knee joint; E03.9 Hypothyroidism, unspecified; Z85.3 Personal history of malignant neoplasm of breast; Z80.3 Family history of malignant neoplasm of breast; Z79.899 Other long term (current) drug therapy; Z79.82 Long term (current) use of aspirin; Z79.890 Hormone replacement therapy
CPT/HCPCS: 36415; 36416; 80048; 81003; 85025; 85027; 85610; 86850; 86900; 86901; 87081; A4306; C1713; C1776; J0690; J1100; J1885; J2001; J2405; J2704; J2795; J3010; J3370; J3490; S0020; U0003; U0005

== ENCOUNTER 2023-02-09 11:12 | Outpatient (CLI) | payer MEDICARE, BC | END 2023-02-09 11:13 | disposition home or self-care (01) | LOC: RAD 11:12 | PROVIDERS: ATTEND Internal Medicine Critical Care Medicine | DX: R06.00 Dyspnea, unspecified (principal) | CPT/HCPCS: 71046 ==

== ENCOUNTER 2023-05-11 08:12 | Outpatient (CLI) | payer MEDICARE | END 2023-05-11 08:13 | disposition home or self-care (01) | LOC: CT 08:12 | PROVIDERS: ATTEND Internal Medicine Critical Care Medicine | DX: R91.1 Solitary pulmonary nodule (principal); J98.4 Other disorders of lung | CPT/HCPCS: 71250 ==